=== PATIENT | female | born 1950 | race Two or more races ===

== ENCOUNTER 2017-10-14 14:23 | Outpatient (CLI) | payer OTHER ==
[2017-10-16] MEDS ORDERED: PAXIL30 MG PO (10:48)
[2017-10-16] MEDS ORDERED: LOSARTAN POTAS100 MG PO (10:49)
[2017-10-16] MEDS ORDERED: LIPITOR20 MG PO (10:49)
== END 2017-10-14 15:25 | disposition home or self-care (01) ==
LOC: RAD 14:23
DX: Z01.811 Encounter for preprocedural respiratory examination (principal); N63.20 Unspecified lump in the left breast, unspecified quadrant

== ENCOUNTER 2019-12-06 09:52 | Outpatient (CLI) | payer OTHER ==
[~2019-12-06 09:52] MED LIST: LIPITOR20 MG PO; LOSARTAN POTAS100 MG PO; PAXIL30 MG PO
== END 2019-12-06 11:37 | disposition home or self-care (01) ==
LOC: NUCLEAR 09:52
DX: R22.32 Localized swelling, mass and lump, left upper limb (principal); C50.412 Malignant neoplasm of upper-outer quadrant of left female breast; I87.2 Venous insufficiency (chronic) (peripheral)